=== PATIENT | male | born 1980 | race Caucasian/White ===

== ENCOUNTER 2018-09-20 21:13 | Emergency (ER) | payer OTHER ==
[~2018-09-20] VITALS: Ht 182.9 cm; Wt 90.7 kg
[2018-09-20 21:20] VITALS: BP 136/98
--- NOTE | 2018-09-20 21:26 | NUR ---
PATIENT GOT OFF RA STRETCHER AND LEFT ER. Patient is awake and alert to self, day, and place. Patient ambulatory with a steady gait.
== END 2018-09-20 21:37 | disposition left against medical advice (07) ==
LOC: ER 21:18
DX: Z53.21 Procedure and treatment not carried out due to patient leaving prior to being seen by health care provider (principal)

== ENCOUNTER 2019-06-01 11:35 | Emergency (ER) | payer OTHER ==
[~2019-06-01] VITALS: Ht 180.3 cm; Wt 83.9 kg
[2019-06-01 11:39] VITALS: BP 145/79
== END 2019-06-01 13:01 | disposition home or self-care (01) ==
LOC: ER 11:38
DX: M25.532 Pain in left wrist (principal); Z88.1 Allergy status to other antibiotic agents; W18.39XA Other fall on same level, initial encounter; Y93.89 Activity, other specified; Y92.89 Other specified places as the place of occurrence of the external cause; Y99.8 Other external cause status
CPT/HCPCS: 73110

== ENCOUNTER 2020-03-26 20:02 | Emergency (ER) | payer OTHER ==
[~2020-03-26] VITALS: Ht 180.3 cm; Wt 77.1 kg
--- NOTE | 2020-03-26 20:13 | NUR ---
PT BIB PD AND RA FROM [place] [facility]REETS FOR DRUG USE. PT ADMITS TO TAKING METH AND 4 SHOTS OF WHISKEY. PT AAOX3, VSS, RESPIRATIONS EVEN AND UNLABORED ON RA W/ NAD NOTED. PT CONNECTED TO THE MONITOR AND POX. [employer] AT BEDSIDE
[2020-03-26] MEDS ORDERED: diphenhydrAMINE HCL 50 MG/ML VIAL ONE (20:18)
[2020-03-26] MEDS ORDERED: LORAZEPAM INJ 2 MG/ML VIAL ONE (20:19)
[2020-03-26] MEDS ORDERED: OLANZAPINE 10 MG VIAL IM ONE ×2 (20:19→20:30)
[2020-03-26] MEDS ORDERED: diphenhydrAMINE HCL 50 MG/ML VIAL IM ONE (20:30)
[2020-03-26] MEDS ORDERED: LORAZEPAM INJ 2 MG/ML VIAL IM ONE (20:30)
[2020-03-26 20:37] LABS: BASOPHILS # (AUTO) 0.1 /CMM (0.0-0.2); BASOPHILS % (AUTO) 1.2 % (0.0-2.0); EOSINOPHILS % (AUTO) 0.6 % (0.0-6.0); HEMATOCRIT 46 % (39-51); HEMOGLOBIN 15.6 g/dL (13.5-17.5); LYMPHOCYTES # (AUTO) 1.5 /CMM (0.8-4.8); LYMPHOCYTES % (AUTO) 14.8 % (20.0-44.0); MEAN CORPUSCULAR HGB CONC 34 g/dl (31.0-36.0); MEAN CORPUSCULAR VOLUME 87 fL (80-96); MONOCYTES # (AUTO) 0.7 /CMM (0.1-1.30); NEUTROPHILS # (AUTO) 7.9 /CMM (1.8-8.9); NEUTROPHILS % (AUTO) 76.4 % (43.0-81.0); PLATELET COUNT (AUTO) 210 /CMM (150-450); RED BLOOD CELL COUNT(AUTO) 5.33 MIL/uL (4.5-6.0); WHITE BLOOD COUNT (AUTO) 10.4 K/uL (4.3-11.0)
[2020-03-26 20:42] LABS: CALCIUM, SERUM 8.6 mg/dL (8.5-10.1); POTASSIUM 3.5 mmol/L (3.5-5.1)
[2020-03-26 20:48] LABS: ALBUMIN 3.8 g/dL (3.4-5.0); BILIRUBIN,DIRECT 0.2 mg/dL (0.0-0.2); BILIRUBIN,TOTAL 0.7 mg/dL (0.2-1.0); TOTAL PROTEIN, SERUM 7.5 g/dL (6.4-8.2)
--- NOTE | 2020-03-26 20:50 | NUR ---
BLOOD COLLECTED AND SENT TO LAB
--- NOTE | 2020-03-26 22:21 | NUR ---
URINE COLLECTED AND SENT TO LAB
[2020-03-26 23:15] LABS: APPEARANCE,URINE Clear (CLEAR); BILIRUBIN,URINE Negative (NEGATIVE); BLOOD, URINE Small Ery/uL (NEGATIVE); COLOR,URINE Yellow (YELLOW); LEUKOCYTE ESTERASE ,URINE Negative (NEGATIVE); NITRITE, URINE Negative (NEGATIVE); PH,URINE 5.5 (5.0-8.0); PROTEIN,URINE Negative (NEGATIVE); UGLUCOSE Negative (NEGATIVE); UROBILINOGEN,URINE 0.2 EU/dL (0.2)
[2020-03-26 23:30] LABS: BACTERIA,URINE Few /HPF (None Seen); WBC,URINE 0-2 /HPF (0-3)
[2020-03-26 23:31] LABS: MUCUS,URINE Few /LPF (None Seen); URINE AMORPHOUS URATE Few /HPF (None Seen)
[2020-03-26 23:32] LABS: SQUAMOUS EPITHELIAL CELL,UR Few /HPF (None Seen)
--- NOTE | 2020-03-27 02:02 | NUR ---
PT RESTING COMFORTABLY IN BED. NO ACUTE DISTRESS NOTED. SITTER AT BEDSIDE FOR SAFETY
--- NOTE | 2020-03-27 03:00 | NUR ---
BP NOTED ELEVATED 181/115. AWARE
--- NOTE | 2020-03-27 04:19 | NUR ---
PT ASLEEP. NO ACUTE DISTRESS NOTED. SITTER AT BEDSIDE FOR SAFETY
--- NOTE | 2020-03-27 06:32 | NUR ---
PT RESTING COMFORTABLY IN BED. NO ACUTE DISTRESS NOTED.SITTER AT BEDSIDE FOR SAFETY. WILL CONTINUE TO MONITOR
--- NOTE | 2020-03-27 07:22 | NUR ---
RECEIVED ENDORSEMENT FROM AUSTEN LANG FOR [facility]A. PATIENT IN BED ASLEEP, EASILY AROUSABLE BY VOICE. HOOKED TO MONITOR. ELEVATED BP, AWARE. WILL CONTINUE TO MONITOR ACCORDINGLY.
--- NOTE | 2020-03-27 07:23 | NUR ---
SITTER AT BEDSIDE FOR SAFETY
[2020-03-27 14:49] VITALS: BP 128/88
== END 2020-03-27 14:49 | disposition home or self-care (01) ==
LOC: ER 20:03
DX: F15.10 Other stimulant abuse, uncomplicated (principal); Z88.1 Allergy status to other antibiotic agents
CPT/HCPCS: 36415; 80048; 80076; 80299; 80307; 80320; 81001; 85025; 96372 ×2; 99285; J1200; J2060; J3490; 81000-TC; G0480